=== PATIENT | male | born 1935 | race Caucasian/White ===

== ENCOUNTER → 2020-01-10 13:07 | Outpatient (CLI) | payer MEDICARE, SELFPAY ==
[2020-01-10 16:18] LABS: Hemoglobin A1c 9.7 % (3.8-5.6)
[2020-01-10 16:21] LABS: Anion Gap 3 (5-15); BUN 19 mg/dL (7-18); BUN/Creat Ratio 19.1 RATIO (10-20); Calcium,Total 8.9 mg/dL (8.5-10.1); Chloride 107 mmol/L (98-107); Cholesterol 112 mg/dL (200); EST Glomerular Filtration Rate 76 mL/min (>60); Est Glom Filt Rate - Afr Amer 92 mL/min (>60); Glucose 153 mg/dL (74-106); High Density Lipoprotein 67 mg/dL; Potassium 4.3 mmol/L (3.5-5.1); Sodium Level 141 mmol/L (136-145); Triglycerides 31 mg/dL; Very Low Density Lipoprotein 6 mg/dL (5-40)
== END ==
PROVIDERS: PCP Family Medicine; Referring Provider Family Medicine; Visit Provider Family Medicine
DX: E11.9 Type 2 diabetes mellitus without complications (principal); N52.9 Male erectile dysfunction, unspecified
CPT/HCPCS: 36415; 80048; 80061; 83036; 84403

== ENCOUNTER 2020-02-18 14:57 | Emergency (ER) | payer MEDICARE, SELFPAY ==
[2020-02-18 15:00] VITALS: BP 133/62; PULSE 66; RESP 14; TEMP 36.6; O2SAT 97; BMI 24.3
--- NOTE | 2020-02-18 15:15 | ED.DCSUM_ITS ---
- ER Visit Summary Date of Service: 02/18/20 Chief Complaint: [Cold symptoms] History of Present Illness: The patient is a 84 M [presents to the emergency department complaint of cold symptoms that started 3 days ago. Patient denies any COVID-19 exposures. Patient describes a mild headache and a sore throat. Patient has an occasional cough. Patient states he has a history of mesothelioma and gets infections easily. He denies recent travel or surgery. Patient is a diabetic and has history of hypertension. Today he developed some mild chest tightness and wanted to get evaluated. No sick contacts at home. Patient does have history of seasonal allergies. Patient has had a runny nose. He denies any fevers.] Physical Examination: [HEENT-PERRLA, EOMI. Cranial nerves II through XII grossly intact. TMs clear. Mucous membranes moist. No adenopathy. Cardiovascular-regular rate and rhythm without murmur or ectopy Lungs-clear to auscultation, chest wall stable without crepitus or subcu emphysema Abdomen-normoactive bowel sounds, soft, nontender, no rebound or rigidity, no peritoneal signs. Extremities-intact ?4, normal range of motion, normal pulses, atraumatic] Test Results: [EKG obtained which showed a normal sinus rhythm with a ventric ular rate of 62 bpm with no acute ST segment changes.. Covid test ordered and results will be pending as it is a send out.] Emergency Department Course and Treatment: [] Treatment Plan: [Patient will be started on doxycycline as well as given albuterol MDI.] Patient advised to self quarantine until test results return. Patient advised to return if increasing shortness of breath or condition should worsen anyway. Disposition: [Discharged home in stable condition.] Impression: [ URI-rule out COVID-19] This note was generated with [employer] software. It may contain incorrect words, spelling, and punctuation that were not noted in review of the chart prior to signing ED Disposition - Plan for ED Patient: Referrals: Aniket Butler MD [Primary Care Provider] -
--- NOTE | 2020-02-18 15:15 | EKG12_ITS ---
Test Reason : Blood Pressure : / mmHG Vent. Rate : 062 BPM Atrial Rate : 062 BPM P-R Int : 192 ms QRS Dur : 098 ms QT Int : 406 ms P-R-T Axes : 053 022 029 degrees QTc Int : 412 ms Normal sinus rhythm Normal ECG Confirmed by SU TINAJERO, PATRICK ([id number]), editor newspaper [employer]ISON [employer] ([id number]) on 02/21/2020 8:15:25 AM Referred By: RIMMA/MADISON Confirmed By:PATRICK BLUE MD
--- NOTE | 2020-02-18 15:23 | NURSING ---
NO OLD EKGS
[2020-02-18 15:34] VITALS: BP 142/59; PULSE 62; RESP 15; O2SAT 97
--- NOTE | 2020-02-18 15:47 | ED.DEP ---
ED Disposition - Plan for ED Patient: Instructions: ED Upper Resp Infec Abx Tx Prescriptions: Doxycycline 100 mg PO BID #20 cap Prescription Printed Referrals: Aniket Butler MD [Primary Care Provider] - 5-7 Days
[2020-02-18 16:03] VITALS: BP 134/57; PULSE 61; RESP 20; O2SAT 99
== END 2020-02-18 16:11 | disposition home or self-care (01) ==
PROVIDERS: Emergency Provider Emergency Medicine; PCP Family Medicine
DX: J06.9 Acute upper respiratory infection, unspecified (principal); R07.89 Other chest pain; C45.9 Mesothelioma, unspecified; Z72.0 Tobacco use
CPT/HCPCS: 87635; 93005; 99284; U0003

== ENCOUNTER → 2020-04-23 06:25 | Outpatient (CLI) | payer MEDICARE, SELFPAY ==
--- NOTE | 2020-04-23 09:06 | STRESSREP_ITS ---
Stress Test Report Date: Procedure: Exercise tolerance test/imaging study Indications: Chest pain Consent: Per the patient Procedure: The patient exercised on a Adilson protocol for 5 minutes completing Stage I and 2 minutes of Stage II achieving a peak heart rate of 131 bpm (96% predicted maximal heart rate) with a peak blood pressure 210/72 mmHg and a peak MET capacity of 7 METs. The baseline ECG demonstrated sinus bradycardia. The peak exercise ECG demonstrated no obvious ECG changes. There were occasional PVCs pretest, during exercise, and recovery. The functional capacity was considered average. There was no complaint of chest discomfort during exercise or recovery. The examination was discontinued secondary to dyspnea. Impression: 1. Technically adequate (percent predicted maximal heart rate greater than 85%) exercise tolerance test 2. Peak exercise ECG with no obvious ECG changes 3. There were occasional PVCs pretest, during exercise, and recovery 4. Nuclear images pending Myocardial perfusion imaging study: Technique: The patient was injected with 11.2 mCi of technetium 99m Cardiolite and subsequently rest SPECT Cardiolite nuclear imaging was obtained in the horizontal long, vertical long, and short axis views. The patient exercised on a Adilson protocol for 5 minutes completing Stage I and 2 minutes of Stage II achieving a peak heart rate of 131 bpm (96% predicted maximal heart rate) with a peak blood pressure 210/72 mmHg and a peak MET capacity of 7 METs. The patient was injected with 33.6 mCi of technetium 99m Cardiolite and subsequently stress SPECT Cardiolite nuclear imaging was obtained in the horizontal long, vertical long, and short axis views. A gated Cardiolite study at peak stress was obtained. Interpretation: Rest and stress SPECT Cardiolite nuclear imaging status post realignment and normalization demonstrates the appearance of relative uniform tracer uptake and myocardial perfusion appearing within normal limits. There is end systolic thickening and brightening. The gated Cardiolite study demonstrates myocardial thickening and inward wall motion. The reported LVEF is 49%. Impression: 1. Rest and stress SPECT Cardiolite nuclear imaging demonstrate relative uniform tracer uptake and myocardial perfusion appearing within normal limits. 2. The gated Cardiolite study reports an LVEF of 49%. This note was generated with [employer] software. It may contain incorrect words, spelling, and punctuation that were not noted in checking the note before signing.
== END ==
PROVIDERS: PCP Family Medicine; Referring Provider Family Medicine; Visit Provider Family Medicine
DX: R07.9 Chest pain, unspecified (principal)
CPT/HCPCS: 78452; 93017; A9500; A4216

== ENCOUNTER → 2020-06-18 10:15 | Outpatient (CLI) | payer MEDICARE, SELFPAY ==
[2020-06-18 12:30] LABS: ALB/GLOB Ratio 1.2 RATIO (0.9-2.4); AST(SGOT) 13 U/L (15-37); Alanine Aminotransfer ALT/SGPT 18 U/L (16-61); Albumin, Serum 3.4 g/dL (3.2-5.0); Alkaline Phosphatase 84 U/L (45-117); Anion Gap 7 (5-15); BUN 22 mg/dL (7-18); BUN/Creat Ratio 21.4 RATIO (10-20); Calcium,Total 8.8 mg/dL (8.5-10.1); Chloride 102 mmol/L (98-107); Creatinine, Serum 1.03 mg/dL (0.70-1.30); EST Glomerular Filtration Rate 73 mL/min (>60); Est Glom Filt Rate - Afr Amer 88 mL/min (>60); Globulin 2.9 g/dL (2.2-4.2); Glucose 255 mg/dL (74-106); Potassium 4.2 mmol/L (3.5-5.1); Protein, Total 6.3 g/dL (6.4-8.2); Sodium Level 136 mmol/L (136-145)
== END ==
PROVIDERS: PCP Family Medicine; Visit Provider Family Medicine
DX: B35.1 Tinea unguium (principal)
CPT/HCPCS: 36415; 80053

== ENCOUNTER → 2020-06-21 09:09 | Outpatient (CLI) | payer MEDICARE, SELFPAY ==
--- NOTE | 2020-06-21 09:13 | US_ITS ---
STUDY: SUPERFICIAL ULTRASOUND - LEFT ANTERIOR CHEST MASS. REASON FOR EXAM: Male, 84 years old. CHEST MASS - LT ANTERIOR HX OF LIPOMA REMOVAL X 10 YRS AGO TECHNIQUE: A superficial ultrasound was performed with real-time and static hinson-scale imaging. COMPARISON: None. FINDINGS: The palpable abnormality corresponds to a 5.8 cm x 5.5 cm x 2.9 cm soft tissue mass. Biopsy recommended. US/Chest IMPRESSION: The palpable abnormality corresponds to a 5.8 cm x 5.5 cm x 2.9 cm soft tissue mass. A biopsy is recommended. Electronically Signed: Cortez Ward MD at 13:36 EST , Service support ,
== END ==
PROVIDERS: PCP Family Medicine; Referring Provider Family Medicine; Visit Provider Family Medicine
DX: R22.2 Localized swelling, mass and lump, trunk (principal)
CPT/HCPCS: 76604

== ENCOUNTER → 2020-07-19 13:48 | Outpatient (CLI) | payer MEDICARE, SELFPAY ==
[2020-07-10 13:00] VITALS: BMI 23.0
--- NOTE | 2020-07-19 13:51 | CT_ITS ---
STUDY: CT CHEST WITHOUT CONTRAST REASON FOR EXAM: Male, 84 years old. Left chest wall mass RADIATION DOSAGE (If Supplied By Facility): CTDIvol = ( 8.90 ) mGy, DLP = ( 313.99 ) mGycm TECHNIQUE: Transaxial imaging was performed without the administration of intravenous contrast material. Multiplanar coronal and sagittal images were reformatted. Individualized dose optimization techniques were used for this CT. COMPARISON: None. FINDINGS: There is a 6.8 cm x 2.9 cm x 6 cm fat-containing mass deep to the left pectoralis muscle. Focal calcification is seen within it. There is also evidence of a 4.7 cm x 3.6 cm x 3.6 cm soft tissue mass with dense ossification within the medial to the anterior aspect of the left scapula. 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 Calcified granuloma in the left midlung laterally. There is no demonstrated pleural abnormality. There are calcifications of the coronary arteries. Calcification of the mitral valve annulus. Normal mediastinum. Calcified left hilar lymph nodes. Normal unenhanced pulmonary arteries. There is atherosclerotic calcification of the aortic arch with tortuosity and elongation of the aortic arch and descending thoracic aorta. There are multi-level degenerative changes of the thoracic spine. Calcified splenic granulomas. Scattered calcified hepatic granulomas. There is a 1.5 cm cyst in the midportion of the right lobe of the liver. CT/Chest without Contrast IMPRESSION: 6.8 cm x 2.9 cm x 6 cm fat-containing mass deep to the left pectoralis muscle with focal calcifications within it. There is also evidence of a 4.7 cm x 3.6 cm x 3.6 cm soft tissue mass with dense ossification within the facet along the medial anterior aspect of the left scapula. Electronically Signed: Cortez Ward MD at 15:26 EDT , Service support ,
== END ==
PROVIDERS: PCP Family Medicine; Visit Provider Surgery
DX: R22.2 Localized swelling, mass and lump, trunk (principal)
CPT/HCPCS: 71250